=== PATIENT | female | born 1975 | race Caucasian/White ===

== ENCOUNTER → 2017-06-12 | Outpatient (CLI) | payer MEDICARE, OTHER ==
[~2017-06-12] MED LIST: FERR325C PO; HYDR-209 PO; LAMO25TB2 PO; LEVO125T PO; LEVO25TA55 PO; LEXAPRO10 MG PO; SERT50TA PO; TRAZ50TA15 PO; ZOLP10TA PO; [UNRECOGNIZED DRUG - CODE] PO
--- NOTE | 2017-06-12 11:25 | RAD ---
Indication deformity. AP oblique and lateral views of the right foot were obtained. Images were obtained with the patient standing. There are some degenerative changes at the first metatarsal phalangeal joint. Acute bony finding is not seen
== END | disposition home or self-care (01) ==
LOC: DXRADRC 09:58
PROVIDERS: ATTEND Podiatrist Foot & Ankle Surgery
DX: M20.21 Hallux rigidus, right foot (principal); M21.961 Unspecified acquired deformity of right lower leg
CPT/HCPCS: 73630

== ENCOUNTER → 2020-05-18 | Outpatient (CLI) | payer MEDICARE ==
[~2020-05-18] MED LIST changes: +TRAZ-120 PO; -TRAZ50TA15 PO
--- NOTE | 2020-05-19 17:52 | RAD ---
EXAM: BILATERAL DIGITAL 3D SCREENING MAMMOGRAPHY. HISTORY: Routine mammographic screening. TECHNIQUE: Bilateral digital 3D and tomographic images were obtained in CC and MLO projections. Computer-aided detection was applied. COMPARISON: 04/29/2019. COMPOSITION: D. The breasts are extremely dense, which lowers the sensitivity of mammography. FINDINGS: There is a postbiopsy clip superolaterally on the right. An obscured/circumscribed nodule laterally on the right is stable and benign. There are no suspicious masses, microcalcifications or architectural distortion. The parenchymal pattern is stable. BI-RADS CATEGORY 2: Benign. RECOMMENDATION: 1. Routine screening mammography in one year. If mammography demonstrates dense breast tissue (heterogenously dense or extremely dense, category C or D), which could hide abnormalities, and if other risk factors for breast cancer have been identified, supplemental screening tests that may be suggested by the ordering physician may be of benefit. Dense breast tissue, in and of itself, is a relatively common condition. Therefore, this information is not provided to cause undue concern, but rather to raise awareness and to promote discussion with the referring physician regarding the presence of other risk factors, in addition to dense breast tissue. The results of this mammography examination is provided to the patient and referring physician. The patient should contact their referring physician if any questions or concerns exist regarding this report. PQRS compliance statement - Patient information was entered into a reminder system with a target due date for the next mammogram. "Our facility is accredited by the [employer] Mammography Program." Electronically signed by: Lindsey German MD (05/19/2020 5:49 PM) [id number]
== END | disposition home or self-care (01) ==
LOC: MAMMO 14:43
PROVIDERS: ATTEND Family Medicine
DX: Z12.31 Encounter for screening mammogram for malignant neoplasm of breast (principal)
CPT/HCPCS: 77063; 77067

== ENCOUNTER → 2020-10-10 | Outpatient (CLI) | payer MEDICARE ==
[2020-10-10 15:24] LABS: BASO % 0 % (0-3); EOS # 0.1 x10^3/uL (0.0-0.7); EOS % 2 % (0-3); HEMATOCRIT 33.6 % (36.0-47.0); HEMOGLOBIN 11.3 g/dL (12.0-15.5); LYMPH # 1.4 x10^3/uL (1.0-4.8); LYMPH % 25 % (24-48); MEAN CORPUSCULAR HEMOGLOBIN 32 pg (25-35); MEAN CORPUSCULAR HGB CONC 34 g/dL (31-37); MEAN CORPUSCULAR VOLUME 96 fL (79-100); MONO # 0.4 x10^3/uL (0.0-1.1); MONO % 7 % (0-9); NEUT # 3.7 x10^3uL (1.8-7.7); NEUT % 66 % (31-73); PLATELET COUNT 281 x10^3/uL (140-400); RED CELL DISTRIBUTION WIDTH 14.1 % (11.5-14.5); WHITE BLOOD COUNT 5.7 x10^3/uL (4.0-11.0)
[2020-10-11 13:40] LABS: FREE T4 0.87 ng/dL (0.76-1.46); THYROID STIM HORMONE (TSH) 2.214 uIU/mL (0.358-3.740)
== END ==
LOC: LAB 13:11
PROVIDERS: ATTEND Family Medicine
DX: E03.9 Hypothyroidism, unspecified (principal)
CPT/HCPCS: 36415; 82728; 83540; 84439; 84443; 84466; 85025

== ENCOUNTER 2021-05-11 11:41 | Emergency (ER) | payer MEDICARE ==
[~2021-05-11] VITALS: Ht 162.6 cm; Wt 127.0 kg
--- NOTE | 2021-05-11 12:37 | RAD ---
Exam Date: 05/11/2021 12:20 PM XR SHOULDER_LEFT 2+ VIEWS Indication: Reason: SHOULDER PAIN / Spl. Instructions: / History: . FINDINGS/ IMPRESSION: No acute fracture or dislocation. Alignment and joint spaces are maintained. The soft tissues are w ithin normal limits. Electronically signed by: Bj Robles MD (05/11/2021 12:34 PM) [id number]
--- NOTE | 2021-05-11 12:54 | PHYS DOC ---
Past History Past Medical History: Anemia, Anxiety, Arthritis, Bipolar, Constipation, Depression, GERD, Hypertension, Hypothyroid, Migraines, Other Past Surgical History: No Surgical History, , Tubal ligation Smoking: Non-smoker Alcohol Use: None Drug Use: None General Adult EDM: Chief Complaint: SHOULDER INJURY HPI: HPI: Patient is a 45-year-old female presents with left shoulder pain. Patient states that 3 days ago she was trying to move a ladder and started having pain in her left shoulder. Patient states she is been taking Tylenol at home for pa in. Patient still has full range of motion. Review of Systems: Review of Systems: Constitutional: Denies fever or chills Eyes: Denies change in visual acuity HENT: Denies nasal congestion or sore throat Respiratory: Denies cough or shortness of breath Cardiovascular: Denies chest pain or edema GI: Denies abdominal pain, nausea, vomiting, bloody stools or diarrhea : Denies dysuria Musculoskeletal: Reports left-sided shoulder pain Integument: Denies rash Neurologic: Denies headache, focal weakness or sensory changes Endocrine: Denies polyuria or polydipsia Lymphatic: Denies swollen glands Psychiatric: Denies depression or anxiety Allergies: Allergies: Allergies Coded Allergies Type Severity Reaction Last Updated Verified Penicillins Allergy Unknown hives 03/05/14 Yes aspirin Allergy Unknown facial swelling 03/05/14 Yes codeine Allergy Unknown hives 03/05/14 Yes nabumetone Allergy Unknown hives 03/05/14 Yes Physical Exam: PE: Constitutional: Well developed, well nourished, no acute distress, non-toxic appearance. [] HENT: Normocephalic, atraumatic, bilateral external ears normal, oropharynx moist, no oral exudates, nose normal. [] Eyes: PERRLA, EOMI, conjunctiva normal, no discharge. [] Neck: Normal range of motion, no tenderness, supple, no stridor. [] Cardiovascular:Heart rate regular rhythm, no murmur [] Lungs & Thorax: Bilateral breath sounds clear to auscultation [] Abdomen: Bowel sounds normal, soft, no tenderness, no masses, no pulsatile masses. [] Skin: Warm, dry, no erythema, no rash. [] Back: No tenderness, no CVA tenderness. [] Extremities: Left shoulder tenderness, no cyanosis, no clubbing, ROM intact, no edema. [] Neurologic: Alert and oriented X 3, normal motor function, normal sensory function, no focal deficits noted. [] Psychologic: Affect normal, judgement normal, mood normal. [] Current Patient Data: Vital Signs: Vital Signs Date Time Temp Pulse Resp B/P (MAP) Pulse Ox O2 Delivery O2 Flow Rate FiO2 05/11/21 12:20 98.6 70 18 120/68 97 Room Air EKG: EKG: [] Radiology/Procedures: Radiology/Procedures: []Exam Date: 05/11/2021 12:20 PM XR SHOULDER_LEFT 2+ VIEWS Indication: Reason: SHOULDER PAIN / Spl. Instructions: / History: . FINDINGS/ IMPRESSION: No acute fracture or dislocation. Alignment and joint spaces are maintained. The soft tissues are within normal limits. Electronically signed by: Bj Robles MD (05/11/2021 12:34 PM) [id number] Heart Score: C/O Chest Pain: No Risk Factors: Risk Factors: DM, Current or recent (<one month) smoker, HTN, HLP, family history of CAD, obesity. Risk Scores: Score 0 - 3: 2.5% MACE over next 6 weeks - Discharge Home Score 4 - 6: 20.3% MACE over next 6 weeks - Admit for Clinical Observation Score 7 - 10: 72.7% MACE over next 6 weeks - Early Invasive Strategies Course & Med Decision Making: Course & Med Decision Making Pertinent Labs and Imaging studies reviewed. (See chart for details) [] 45-year-old female presents with left shoulder pain after trying to move a ladder 3 days ago. Patient's been taking Tylenol at home with little relief. Shoulder x-ray and hydrocodone given for pain. X-rays negative for fracture. RICE instructions. Instructed patient that she would need to follow-up with her PCP tomorrow for possibly further imaging. Patient sent home with pain medication until she can follow-up with PCP. Ibuprofen also for discomfort. Isr[place] Disclaimer: Isr[place] Disclaimer: This electronic medical record was generated, in whole or in part, using a voice recognition dictation system. Departure Departure: Impression: Primary Impression: Shoulder pain Qualified Codes: M25.512 - Pain in left shoulder Disposition: HOME / SELF CARE / HOMELESS Condition: STABLE Referrals: MOOKIE MUNOZ (PCP) Patient Instructions: Shoulder Pain, [id number] Additional Instructions: You are seen in the emergency room for left shoulder pain. X-ray was negative for fracture. I am sending you home with some pain medication until he can follow-up with your PCP. Please call PCP and make an appointment for tomorrow for possible further imaging. You can also take ibuprofen at home. Rest, use ice, elevate to help with swelling and pain. EMERGENCY DEPARTMENT GENERAL DISCHARGE INSTRUCTIONS Thank you for coming to [facility] (ED) today and trusting us with you care. We trust that you had a positivie experience in our Emergency Department. If you wish to speak to the department management, you may call the director at [phone]. YOUR FOLLOW UP INSTRUCTIONS ARE FOLLOWS: 1. Do you have a private Doctor? If you do not have a private doctor, please ask for a resource list of physicians or clinics that may be able to assist you with follow up care. 2. The Emergency Physician has interpreted your x-rays. The X-Ray specialist will also review them. If there is a change in the findings, you will be notified in 48 hours when at all possible. 3. A lab test or culture has been done, your results will be reviewed and you will be notified if you need a change in treatment. ADDITIONAL INSTRUCTIONS AND INFORMATION: 1. Your care today has been supervised by a physician who is specially trained in emergency care. Many problems require more than one evaluation for a complete diagnosis and treatment. We recommend that you schedule your follow up appointment as recommended to ensure complete treatment of you illness or injury. If you are unable to obtain follow up care and continue to have a problem, or if your condition worsens, we recommend that you return to the ED. 2. We are not able to safely determine your condition over the phone nor are we able to give sound medical advice over the phone. For these safety reasons, if you call for medical advice we will ask you to come to the ED for further evaluation. 3. If you have any questions regarding these discharge instructions please call the ED at [phone]. SAFETY INFORMATION: In the interest of safety, wellness, and injury prevention; we encourage you to wear your sealbelt, if you smoke; quite smoking, and we encourage family to use a protective helmet for bicycling and other sporting events that present an increased risk for head injury. IF YOUR SYMPTOMS WORSEN OR NEW SYMPTOMS DEVELOP, OR YOU HAVE CONCERNS ABOUT YOUR CONDITION; OR IF YOUR CONDITION WORSENS WHILE YOU ARE WAITING FOR YOUR FOLLOW UP APPOINTMENT; EITHER CONTACT YOUR PRIMARY CARE DOCTOR, THE PHYSICIAN WHOSE NAME AND NUMBER YOU WERE GIVEN, OR RETURN TO THE ED IMMEDIATELY. Scripts Hydrocodone/Acetaminophen (Hydrocodone-Acetamin 5-325 mg) 1 Each Tablet 1 EACH PO PRN Q4-6HRS for PAIN for 3 Days, #12 TAB Prov: TONY RICO APRN 05/11/21 TONY RICO APRN May 11, 2021 12:54
[2021-05-11] MEDS ORDERED: HYDROcodone/APAP 5/325MG 1 TAB TABLET PO ONE (13:00)
[2021-05-11 13:50] VITALS: BP 111/66
[2021-05-11] MEDS ORDERED: HYDR-2759 PO (13:52)
== END 2021-05-11 13:50 | disposition home or self-care (01) ==
LOC: ER 11:41
DX: M25.512 Pain in left shoulder (principal); F41.9 Anxiety disorder, unspecified; M19.90 Unspecified osteoarthritis, unspecified site; F31.9 Bipolar disorder, unspecified; K21.9 Gastro-esophageal reflux disease without esophagitis; I10 Essential (primary) hypertension; E03.9 Hypothyroidism, unspecified; G43.909 Migraine, unspecified, not intractable, without status migrainosus; Z86.2 Personal history of diseases of the blood and blood-forming organs and certain disorders involving the immune mechanism; Z88.0 Allergy status to penicillin; Z88.6 Allergy status to analgesic agent; Z88.5 Allergy status to narcotic agent; Z88.8 Allergy status to other drugs, medicaments and biological substances; X50.9XXA Other and unspecified overexertion or strenuous movements or postures, initial encounter; Y93.89 Activity, other specified; Y92.89 Other specified places as the place of occurrence of the external cause; Y99.8 Other external cause status
CPT/HCPCS: 73030; 99283

== ENCOUNTER → 2021-11-07 | Outpatient (CLI) | payer MEDICARE ==
[~2021-11-07] MED LIST changes: +HYDR-2759 PO
--- NOTE | 2021-11-07 11:59 | RAD ---
EXAM: Pelvic sonogram. HISTORY: Metrorrhagia. TECHNIQUE: Transabdominal and transvaginal sonographic imaging of the pelvis was performed. COMPARISON: None. FINDINGS: The uterus measures 7.9 x 4.2 x 3.7 cm. There is diffusely heterogeneous uterine echogenici ty. The endometrial stripe measures 8 mm in thickness. There is a heterogeneous suspected complicated cystic lesion within the cervix measuring 1.9 cm in maximum dimension. The ovaries are normal in siz e and demonstrate normal blood flow. There are dominant bilateral ovarian follicle/follicular cysts m easuring 2.2 cm bilaterally. There is no pelvic free fluid. IMPRESSION: 1. Normal endometrial stripe thickness for the premenopausal status of the patient. 2. 1.9 cm heterogeneous suspected corticated cystic lesion within the cervix, possibly due to glandul ar hyperplasia. The imaging appearance does not favor a complicated nabothian cyst. The possibility o f neoplasm is not excluded. Correlate with pelvic exam findings. 3. Bilateral dominant ovarian follicle/follicular cyst measuring 2.2 cm. 4. Heterogeneous uterine parenchyma. No discrete mass is seen. Electronically signed by: Becky Hdz MD (11/07/2021 11:57 AM) [id number]
== END ==
LOC: US 10:52
PROVIDERS: ATTEND Family Medicine
DX: N83.02 Follicular cyst of left ovary (principal); N83.01 Follicular cyst of right ovary; N83.8 Other noninflammatory disorders of ovary, fallopian tube and broad ligament; N92.1 Excessive and frequent menstruation with irregular cycle
CPT/HCPCS: 76830; 76856